=== PATIENT | male | born 1960 | race African-American/Black ===

== ENCOUNTER 2018-09-07 18:59 | Emergency (ER) | payer MEDICAID, OTHER ==
[~2018-09-07] VITALS: Ht 175.3 cm; Wt 81.6 kg
[2018-09-07] MEDS ORDERED: Isovue-300 100ml vial INJ PRN (19:15)
[2018-09-07] MEDS ORDERED: Morphine Sulfate 2mg/ml Inj(IV/IM USE ONLY) IVP ONE (19:15)
--- NOTE | 2018-09-07 19:18 | Emergency Room Report ---
History of Present Illness General Chief Complaint: Abdominal Pain Source: Patient, EMS Present Illness HPI Patient presents via EMS with one to 2 weeks of severe abdominal pain. He feels like a golf fall that's pushing with severe pressure mostly on the left- hand side but occasionally on the right. He has some nausea but without vomiting. He's been able to move his bowels without diarrhea. He denies dysuria. He's taken Tenafly and Tylenol with Codeine for the pain. He says he can't take nonsteroidals. The patient's not been evaluated for this problem in the past. Pain is rated 6/10 in pressure. He is also complaining about numbness down both arms with the pain as a gets severe. In addition to that he has some muscle spasms more on his right hand and forearm and the left-hand side. There is no weakness. The patient takes Zyprexa. He denies any suicidal or homicidal ideation. He states there is a lot of stress at his job. History of hypertension No chest pain, palpitations, headache, change in vision, polyuria, polydipsia or joint pain. Allergies: Coded Allergies: No Known Allergies (Unverified , 09/07/18) Patient History Past Medical History: see triage record Social History: Reports: smoking; Denies: alcohol use, drug use Social History Narrative washer at restaurant Reviewed Nursing Documentation: PMH: Agreed; PSxH: Agreed Nursing Documentation-PMH Past Medical History: No History, Except For Hx Hypertension: Yes History Of Psychiatric Problem: Yes Review of Systems All Other Systems: negative except mentioned in HPI Physical Exam Vital Signs Date Time Temp Pulse Resp B/P (MAP) Pulse Ox O2 Delivery O2 Flow Rate FiO2 09/07/18 19:01 97.9 98 18 99 Room Air Sp02 EP Interpretation: reviewed, normal General Appearance: well appearing, no apparent distress, GCS 15 Head: normocephalic, atraumatic Eyes: bilateral eye normal inspection, bilateral eye PERRL, bilateral eye EOMI ENT: moist mucus membranes Neck: supple Respiratory: lungs clear, normal breath sounds Cardiovascular #1: regular rate, rhythm Cardiovascular #2: 2+ radial (R) Gastrointestinal: normal inspection, normal bowel sounds, no mass, non- distended, no guarding, no rebound, tenderness - Diffuse Genitourinary: no CVA tenderness Musculoskeletal: back normal, gait/station normal, normal range of motion Neurologic: alert, oriented x3, grossly normal Psychiatric: mood/affect normal Skin: normal inspection, warm/dry Medical Decision Making Diagnostic Impression: Primary Impression: Abdominal pain Qualified Codes: R10.84 - Generalized abdominal pain ER Course Irritable bowel syndrome patient presents with abdominal pain for 2 weeks. Differential includes diverticulitis, pancreatitis, peptic ulcer disease, abdominal mass, UTI, amongst others. The patient is evaluated with EKG, chest x-ray labs and CT of the abdomen and pelvis. The patient will be treated with IV hydration and analgesia. Patient is complaining about numbness in his hands. This will be reevaluated. EKG without injury. Chest x-ray no infiltrates. Labs with normal white count and CMP is normal and normal lipase. CPK is elevated. Patient improved with treatment. Awaiting CT results. Patient signed out to Dr. Shell. Laboratory Tests Test 09/07/18 19:20 09/07/18 21:20 White Blood Count 7.7 K/UL (4.8-10.8) Red Blood Count 4.95 M/UL (4.70-6.10) Hemoglobin 14.9 G/DL (14.2-18.0) Hematocrit 43.3 % (42.0-52.0) Mean Corpuscular Volume 88 FL (80-99) Mean Corpuscular Hemoglobin 30.1 PG (27.0-31.0) Mean Corpuscular Hemoglobin Concent 34.3 G/DL (32.0-36.0) Red Cell Distribution Width 11.4 % (11.6-14.8) L Platelet Count 366 K/UL (150-450) Mean Platelet Volume 4.7 FL (6.5-10.1) L Neutrophils (%) (Auto) 55.6 % (45.0-75.0) Lymphocytes (%) (Auto) 35.6 % (20.0-45.0) Monocytes (%) (Auto) 6.8 % (1.0-10.0) Eosinophils (%) (Auto) 0.3 % (0.0-3.0) Basophils (%) (Auto) 1.7 % (0.0-2.0) Prothrombin Time 10.8 SEC (9.30-11.50) Prothrombin Time INR 1.0 (0.9-1.1) PTT 29 SEC (23-33) Sodium Level 136 MMOL/L (136-145) Potassium Level 3.9 MMOL/L (3.5-5.1) Chloride Level 99 MMOL/L (98-107) Carbon Dioxide Level 26 MMOL/L (21-32) Anion Gap 11 mmol/L (5-15) Blood Urea Nitrogen 19 mg/dL (7-18) H Creatinine 1.0 MG/DL (0.55-1.30) Estimate Glomerular Filtration Rate > 60 mL/min (>60) Glucose Level 113 MG/DL (74-106) H Calcium Level 9.1 MG/DL (8.5-10.1) Total Bilirubin 0.7 MG/DL (0.2-1.0) Aspartate Amino Transferase (AST) 25 U/L (15-37) Alanine Aminotransferase (ALT) 31 U/L (12-78) Alkaline Phosphatase 78 U/L (46-116) Total Creatine Kinase 559 U/L (26-308) H Troponin I 0.019 ng/mL (0.000-0.056) Total Protein 7.5 G/DL (6.4-8.2) Albumin 3.8 G/DL (3.4-5.0) Globulin 3.7 g/dL Albumin/Globulin Ratio 1.0 (1.0-2.7) Lipase 81 U/L (73-393) Urine Color Pale yellow Urine Appearance Clear Urine pH 5 (4.5-8.0) Urine Specific [place] 1.015 (1.005-1.035) Urine Protein Negative (NEGATIVE) Urine Glucose (UA) Negative (NEGATIVE) Urine Ketones 2+ (NEGATIVE) H Urine Blood Negative (NEGATIVE) Urine Nitrite Negative (NEGATIVE) Urine Bilirubin Negative (NEGATIVE) Urine Urobilinogen Normal MG/DL (0.0-1.0) Urine Leukocyte Esterase Negative (NEGATIVE) EKG Diagnostic Results Rate: normal Rhythm: NSR ST Segments: no acute changes Rhythm Strip Diag. Results EP Interpretation: yes Rhythm: NSR, no PVC's, other - pacs Chest X-Ray Diagnostic Results Chest X-Ray Diagnostic Results : Chest X-Ray Ordered: Yes # of Views/Limited/Complete: 1 View Indication: Other EP Interpretation: Yes Interpretation: no consolidation, no effusion, no pneumothorax Impression: No acute disease Electronically Signed by: Electronically signed by Edmar Caballero MD CT/MRI/US Diagnostic Results CT/MRI/US Diagnostic Results : Imaging Test Ordered: abd/pelvis Impression no acute process Last Vital Signs Date Time Temp Pulse Resp B/P (MAP) Pulse Ox O2 Delivery O2 Flow Rate FiO2 09/07/18 22:45 98.4 88 16 129/64 100 Room Air Status: improved Disposition: HOME, SELF-CARE Condition: Improved Scripts Dicyclomine Hcl* (DICYCLOMINE HCL*) 10 Mg Capsule 10 MG PO QID, #20 CAP Prov: Joel Shell MD 09/07/18 Edmar Caballero MD September 07, 2018 19:17
--- NOTE | 2018-09-07 19:30 | NUR ---
ED Nurse Note: RECIEVED PT BIBA FROM WORK WITH C/O SUDDEN, SEVERE ABDOMINAL PAIN AT 7/10, PT DENIES CP, SOB, NAUSEA OR VOMITING, STATES SHARP, SUDDEN PAIN, PT DENIES ANY MEDICAL HISTORY, IMMEDIATELY ASSISTED WITH GOWNING, PLACED ON MONITORING, WILL RESUME CARE ORDERED AND CLOSELY MONITOR.
[2018-09-07 20:26] LABS: BASOPHILS % (AUTO) 1.7 % (0.0-2.0); EOSINOPHILS % (AUTO) 0.3 % (0.0-3.0); HEMATOCRIT 43.3 % (42.0-52.0); HEMOGLOBIN 14.9 G/DL (14.2-18.0); LYMPHOCYTES % (AUTO) 35.6 % (20.0-45.0); MEAN CORPUSCULAR VOLUME 88 FL (80-99); MONOCYTES % (AUTO) 6.8 % (1.0-10.0); NEUTROPHILS % (AUTO) 55.6 % (45.0-75.0); PLATELET COUNT 366 K/UL (150-450); RED BLOOD COUNT 4.95 M/UL (4.70-6.10); RED CELL DISTRIBUTION WIDTH 11.4 % (11.6-14.8); WHITE BLOOD COUNT 7.7 K/UL (4.8-10.8)
[2018-09-07 20:30] VITALS: BP 123/75
[2018-09-07 20:50] LABS: ANION GAP 11 mmol/L (5-15); BLOOD UREA NITROGEN 19 mg/dL (7-18); CALCIUM 9.1 MG/DL (8.5-10.1); CARBON DIOXIDE 26 MMOL/L (21-32); CHLORIDE 99 MMOL/L (98-107); POTASSIUM 3.9 MMOL/L (3.5-5.1); SODIUM 136 MMOL/L (136-145)
[2018-09-07 20:55] LABS: ALANINE AMINOTRANSFERASE 31 U/L (12-78); ALBUMIN 3.8 G/DL (3.4-5.0); ALKALINE PHOSPHATASE 78 U/L (46-116); ASPARTATE AMINO TRANSFERASE 25 U/L (15-37); BILIRUBIN,TOTAL 0.7 MG/DL (0.2-1.0); CREATINE KINASE 559 U/L (26-308)
--- NOTE | 2018-09-07 21:15 | NUR ---
ED Nurse Note: PT MEDICATED ORDERED, MEDS EFFECTIVE, PAIN AT 0/10, PT ALSO TOOK ORAL CONTRAST ORDERED, WAITING FOR SCAN TO BE DONE, PT RESTING QUIETLY, V/S STABLE, WILL CONTINUE TO CLOSELY MONITOR FOR ANY CHANGES OR DISTRESS.
[2018-09-07 21:37] LABS: APPEARANCE,URINE CLEAR; BILIRUBIN, URINE NEGATIVE (NEGATIVE); COLOR,URINE PALE YELLOW; GLUCOSE, URINE (UA) NEGATIVE (NEGATIVE); KETONES,URINE 2+ (NEGATIVE); LEUKOCYTE ESTERASE ,URINE NEGATIVE (NEGATIVE); NITRITE,URINE NEGATIVE (NEGATIVE); PH,URINE 5 (4.5-8.0); PROTEIN,URINE NEGATIVE (NEGATIVE); UROBILINOGEN,URINE NORMAL MG/DL (0.0-1.0)
[2018-09-07 22:30] VITALS: BP 129/64
--- NOTE | 2018-09-07 22:40 | NUR ---
ED Nurse Note: ALL TEST COMPLETED AND NEGATIVE, PT BEING D/C TO HOME, PT IS AWAKE, ALERT AND ORIENTED X 4, AMBULATORY, NO ABD OR CHST PAIN, NO SOB OR LABORED BREATHING, TP SPOUSE IS PRESENT TO DRIVE, PT IV LINE REMOVED WITHOUT COMPLICATIONS, PT GIVEN F/U INFO AND AFTER CARE INSTRUCTIONS, ARMBAND REMOVED, NAD NOTED DURING D/C TO HOME.
[2018-09-07] MEDS ORDERED: DICYCLOMINE HCL10 MG PO (22:42)
[2018-09-07 22:45] VITALS: BP 129/64
--- NOTE | 2018-09-08 23:53 | Diagnostic Imaging Report ---
EXAM: CT Abdomen and Pelvis With Intravenous Contrast CLINICAL HISTORY: ABD PAIN TECHNIQUE: Axial computed tomography images of the abdomen and pelvis with intravenous contrast. CTDI: 16.14 DLP: 830.52 One or more of the following dose reduction techniques were used: automated exposure control, adjustment of the mA and/or kV according to patient size, use of iterative reconstruction technique. COMPARISON: No relevant prior studies available. FINDINGS: Lung bases: Unremarkable. ABDOMEN: Liver: Several small low-attenuation foci in the liver. Gallbladder and bile ducts: No calcified stones. No ductal dilation. Pancreas: Unremarkable. Spleen: Unremarkable. Adrenals: Unremarkable. Kidneys and ureters: Unremarkable. No hydronephrosis. Stomach and bowel: No jhoana mural thickening. Nonobstructive bowel gas pattern. PELVIS: Appendix: Unremarkable appendix. Bladder: Distention of the bladder. Reproductive: Unremarkable. ABDOMEN and PELVIS: Intraperitoneal space: Unremarkable. Bones/joints: No acute fracture. Soft tissues: Unremarkable. Vasculature: Unremarkable. No abdominal aortic aneurysm. Lymph nodes: No enlarged lymph nodes. IMPRESSION: Unremarkable appendix.
--- NOTE | 2018-09-08 23:53 | Diagnostic Imaging Report ---
EXAM: XR Chest, 1 View CLINICAL HISTORY: ABD PAIN TECHNIQUE: Frontal view of the chest. COMPARISON: No relevant prior studies available. FINDINGS: Lungs: No consolidation. Pleural space: Unremarkable. No pneumothorax. Heart: Unremarkable. No cardiomegaly. Mediastinum: Possibly ectatic aorta Bones/joints: No acute fracture. IMPRESSION: No acute cardiopulmonary disease.
== END 2018-09-07 22:50 | disposition home or self-care (01) ==
LOC: EDBD 18:59 → EMR 19:30
DX: R10.84 Generalized abdominal pain (principal); R11.0 Nausea; F17.200 Nicotine dependence, unspecified, uncomplicated; I10 Essential (primary) hypertension; R20.0 Anesthesia of skin
CPT/HCPCS: 36415; 71045; 74177; 80053; 81003; 82550; 83690; 84484; 85025; 85610; 85730; 93005; 96361; 96374; 96375; 99284; J2270; J2405; Q9967; S0028